=== PATIENT | female | born 1955 | race Caucasian/White ===

== ENCOUNTER 2019-08-10 18:23 | Emergency (ER) | payer BC, OTHER ==
[2019-08-10] MEDS ORDERED: ACETAMINOPHEN 500 MG TABLET PO ONE (18:25)
[2019-08-10] MEDS ORDERED: IBUPROFEN 600 MG TABLET PO ONE (18:25)
[2019-08-10] MEDS ORDERED: 0.9 % SODIUM CHLORIDE 1000ML 1,000 ML IV SCH (18:30)
--- NOTE | 2019-08-10 18:33 | Emergency Department Record ---
History of Present Illness - General Chief Complaint: Fever Time Seen by Provider: 08/10/19 18:24 Source: Patient Mode of Arrival: EMS Limitations: No limitations - History of Present Illness Initial Comments: 63 yo female presents to ED for evaluation of fever symptoms and left sided abdominal/flank pain symptoms 48 hours ago. Patient reports a past medical history significant for previous kidney stones and kidney infections, reports temperature of 103 at home. Patient denies urinary symptoms, hematuria, loose stools, or vomiting symptoms. Patient does report fatigue and decreased appetite at home. Patient also denies health problems at her baseline. MD Complaint: Fever, Malaise Onset/Timin -: Hour(s) Temperature Source: Oral Associated Symptoms: Abdominal pain, Myalgias Treatments Prior to Arrival: None - Related Data Home Medications Medication Instructions Recorded Confirmed Last Taken No Home Med [NO HOME MEDS] 08/10/19 08/10/19 Unknown Allergies Allergy/AdvReac Type Severity Reaction Status Date / Time No Known Drug Allergies Allergy Verified 08/10/19 18:29 Travel/Exposure Screening - Travel/Exposure Within Last 30 Days Have you traveled within the last 30 days?: No - Additonal Travel/Exposure Details Have you been exposed to anyone with a communicable illness?: No Review of Systems Constitutional: Reports: Chills, Fever, Malaise, Weakness. Denies: Night sweats Eyes: Denies: Eye discharge, Eye pain ENT: Denies: Congestion, Ear pain, Epistaxis Respiratory: Denies: Cough, Dyspnea Cardiovascular: Denies: Chest pain, Dyspnea on exertion Endocrine: Reports: Fatigue. Denies: Heat or cold intolerance Gastrointestinal: Reports: Abdominal pain, Nausea. Denies: Constipation, Vomiting Genitourinary: Denies: Dysuria, Frequency, Incontinence, Retention Musculoskeletal: Reports: Myalgia. Denies: Arthralgia, Back pain Skin: Denies: Bruising, Change in color Neurological: Denies: Abnormal gait, Confusion, Headache, Tingling, Tremors Psychiatric: Denies: Anxiety Hematological/Lymphatic: Denies: Anemia, Blood Clots Past Medical History - SOCIAL HISTORY Smoking Status: Current every day smoker Alcohol Use: None Drug Use: None - RESPIRATORY Hx Respiratory Disorders: No - CARDIOVASCULAR Hx Cardio Disorders: No - NEURO Hx Neuro Disorders: No - GI Hx GI Disorders: No - Hx Genitourinary Disorders: Yes Hx Kidney Stones: Yes - ENDOCRINE Hx Endocrine Disorders: No - MUSCULOSKELETAL Hx Musculoskeletal Disorders: No - PSYCH Hx Psych Problems: No - HEMATOLOGY/ONCOLOGY Hx Hematology/Oncology Disorders: No Family Medical History Any Significant Family History?: No Physical Exam - General General Appearance: Alert, Oriented x3, Cooperative, Mild distress Limitations: No limitations - Head Head exam: Atraumatic, Normocephalic, Normal inspection Head exam detail: negative: Abrasion, Contusion, Patterson's sign, General tenderness, Hematoma, Laceration - Eye Eye exam: Normal appearance. negative: Conjunctival injection, Periorbital swelling, Periorbital tenderness, Scleral icterus - ENT Ear exam: negative: Auricular hematoma, Auricular trauma Nasal Exam: negative: Active bleeding, Discharge, Dried blood, Foreign body Mouth exam: negative: Drooling, Laceration, Muffled voice, Tongue elevation - Neck Neck exam: Normal inspection. negative: Meningismus, Tenderness - Respiratory Respiratory exam: Normal lung sounds bilaterally. negative: Respiratory distress, Rhonchi, Stridor, Wheezes - Cardiovascular Cardiovascular Exam: Normal rhythm, Normal heart sounds, Tachycardia - GI/Abdominal GI/Abdominal exam: Soft. negative: Distended, Rebound, Rigid, Tenderness - Rectal Rectal exam: Deferred - exam: Deferred - Extremities Extremities exam: Normal inspection. negative: Pedal edema, Tenderness - Back Back exam: Denies: CVA tenderness (R), CVA tenderness (L) - Neurological Neurological exam: Alert, Normal gait, Oriented X3 - Psychiatric Psychiatric exam: Normal affect, Normal mood - Skin Skin exam: Normal color. negative: Abrasion Type of lesion: negative: abrasion Course - Reevaluation(s) Reevaluation #1: 08/10/19 18:45 Patient was seen and examined Blood cultures, laboratory studies including influenza swab UA, and CT Abdomen/pelvis were ordered to exclude possible infected calculus. Will administer tylenol/motrin, IVFs, and reassess pending results. Reevaluation #2: 08/10/19 19:00 Laboratory studies were reviewed and appear grossly unremarkable for an acute process except for the following: CO2 19 UA demonstrates: 3-6 RBCs 6-10 WBCs Bacteria: None Reevaluation #3: 08/10/19 19:19 CT imaging was reviewed Appears c/w large left proximal ureteral calculi Rocephin ordered to infuse pending CT interpretation and likely transfer for urological consultation. Reevaluation #4: 08/10/19 19:23 CT Abdomen and Pelvis: Left UPJ stone causing mild-moderate hydronephrosis Retroperitoneal lymphadenopathy adjacent to the left kidney Will consult with on-call urology at [facility] at this time. 08/10/19 19:35 Case was discussed with Dr. Cottrell, will accept the patient for urologic surgical consultation. Reevaluation #5: 08/10/19 19:43 Case was discussed with Dr. Valentine (ER attending), will accept transfer ED-ED for surgical evaluation. Medical Decision Making - Lab Data Result diagrams: 08/10/19 18:32 08/10/19 18:32 Disposition Disposition: Transfer Clinical Impression: Pyelonephritis, Ureteral calculus, left Disposition: Acute Care Hospital Transfer Transfer To: [facility] Reason For Transfer: Infected obstructing calculus Accepting Physician: Serge Cottrell Time Discussed w/Accepting Physician: 19:39 Condition: (2) Stable Forms: Patient Portal Access Time of Disposition: 19:39 Quality - Quality Measures Quality Measures: N/A - Blood Pressure Screening Does Patient Have Any of the Following: No Blood Pressure Classification: Hypertensive Reading Systolic Measurement: 134 Diastolic Measurement: 105 Screening for High Blood Pressure: < First Hypertensive BP, F/U Documented > [G8950] First Hypertensive Follow-up Interventions: Referral to alternative/primary care provider.
[2019-08-10 18:45] LABS: ABSOLUTE NEUTROPHIL COUNT 6.83; BASO % 0.1 % (0-6); EOS % 0.1 % (0-6); HEMATOCRIT 38.3 % (35.0-47.0); HEMOGLOBIN 12.6 gm/dl (11.6-16.0); LYMPH % 7.5 % (16-45); MEAN CORPUSCULAR HEMOGLOBIN 29.9 pg (27-33); MEAN CORPUSCULAR HGB CONC 32.9 g/dl (32-36); MONO % 2.2 % (0-9); PLATELET COUNT 211 K/uL (130-400); RED BLOOD COUNT 4.21 M/uL (3.80-5.40); RED CELL DISTRIBUTION WIDTH 12.5 % (11.5-14.5); URINE APPEARANCE CLEAR; URINE BILIRUBIN NEGATIVE (NEGATIVE); URINE BLOOD MODERATE (NEGATIVE); URINE COLOR YELLOW; URINE GLUCOSE (UA) NEGATIVE (NEGATIVE); URINE KETONE TRACE (NEGATIVE); URINE LEUKOCYTE ESTERASE MODERATE (NEGATIVE); URINE NITRITE NEGATIVE (NEGATIVE); URINE UROBILINOGEN 0.2 E.U./dL (0.20 - 1.00); WHITE BLOOD COUNT W/O DIFF 7.6 K/uL (4.2-12.2)
[2019-08-10 18:56] LABS: URINE EPITHELIAL CELLS 0 - 2 (FEW)
[2019-08-10 18:57] LABS: BILIRUBIN,TOTAL 0.8 mg/dL (0.2-1.0); CREATININE 1.1 mg/dL (0.5-0.9); URINE BACTERIA NONE SEEN
[2019-08-10 18:58] LABS: TOTAL PROTEIN 6.5 g/dL (6.6-8.7)
[2019-08-10 19:03] LABS: ALB/GLOB RATIO 1.2 (1.1-1.8); ALBUMIN 3.5 g/dL (4.0-5.0)
[2019-08-10] MEDS ORDERED: CEFTRIAXONE 1GM/50ML BAG 1 GM/50 ML BAG IVPB ONE (19:03)
[2019-08-10 19:15] LABS: INFLUENZA A NEGATIVE (NEGATIVE); INFLUENZA B NEGATIVE (NEGATIVE)
--- NOTE | 2019-08-10 19:21 | CT SCAN REPORT ---
EXAMINATION: CT Abdomen and Pelvis without IV Contrast EXAM DATE: 08/10/2019 7:00 PM TECHNIQUE: Standard protocol CT imaging of the abdomen and pelvis was performed without intravenous c ontrast. INDICATION: LLQ pain, possible kidney stone/pyelo COMPARISON: CT abdomen pelvis 05/16/2013 images only ENCOUNTER: Not applicable CT ABDOMEN AND PELVIS FINDINGS: Study is mildly limited by motion artifact. Lung Bases: 4 mm right lower lobe nodule (2:1). Hepatobiliary: The liver has a normal size with a smooth surface. Unremarkable gallbladder. No abnorm al biliary ductal dilatation. Pancreas: The pancreas is normal. Spleen: The spleen is not enlarged. Adrenals: The adrenal glands are normal. Kidneys, Ureters, & Bladder: 6 mm stone at the left ureteropelvic junction causing mild to moderate h ydronephrosis and perinephric stranding. Tiny nonobstructing stones in both kidneys. Ureters unremark able. Urinary bladder unremarkable. Gastrointestinal: Unremarkable stomach, small bowel. Colonic diverticulosis without diverticulitis. N ormal appendix. Reproductive Organs: Uterus, ovaries unremarkable Lymphatic System: Prominent left retroperitoneal lymph nodes measuring up to 1 cm short axis adjacent to the left kidney. Vasculature: Atherosclerotic calcification of the abdominal aorta and its branches. Peritoneum: No free air. Trace fluid in the left retroperitoneum. Abdominal wall & Musculoskeletal: Degenerative changes in the visualized spine. Assessment of the solid organs, soft tissues, and vascular structures is overall limited on noncontra st imaging, IMPRESSION: 1. Left UPJ stone causing mild to moderate left hydronephrosis. 2. Tiny nonobstructing stones in both kidneys. 3. Colonic diverticulosis. 4. Retroperitoneal adenopathy adjacent to the left kidney. Once the acute symptoms have resolved, fur ther characterization with contrast-enhanced CT abdomen pelvis recommended to exclude mass. 5. Other findings as above. Dictated by: Kaleigh Chicas MD on 08/10/2019 7:09 PM. .
== END 2019-08-10 19:56 | disposition short-term general hospital (02) ==
LOC: ER 18:23
DX: N13.6 Pyonephrosis (principal); F17.210 Nicotine dependence, cigarettes, uncomplicated; Z87.442 Personal history of urinary calculi
CPT/HCPCS: 74176; 80053; 81001; 85027; 87400; 96360; 99285; J7030